=== PATIENT | female | born 1985 | race Two or more races ===

== ENCOUNTER 2016-08-05 11:20 | Emergency (ER) | payer MEDICAID, OTHER ==
[~2016-08-05] VITALS: Ht 157.5 cm; Wt 64.0 kg
[~2016-08-05 11:20] MED LIST: PRENATAL
[2016-08-05] MEDS ORDERED: KETOROLAC 60MG/2ML VIAL IM ONE (13:00)
[2016-08-05] MEDS ORDERED: ONDANSETRON 4MG ODT PO ONE (13:00)
[2016-08-05 13:24] VITALS: BP 124/85
== END 2016-08-05 13:37 | disposition home or self-care (01) ==
LOC: ER 13:13
DX: H81.10 Benign paroxysmal vertigo, unspecified ear (principal)
CPT/HCPCS: 81025; 96372; 99283; J1885; Q0162

== ENCOUNTER 2016-11-02 20:54 | Emergency (ER) | payer OTHER ==
[~2016-11-02] VITALS: Ht 157.5 cm; Wt 62.2 kg
[2016-11-02 21:20] VITALS: BP 118/75
== END 2016-11-02 23:06 | disposition left against medical advice (07) ==
LOC: ER 20:54
DX: Z53.21 Procedure and treatment not carried out due to patient leaving prior to being seen by health care provider (principal)

== ENCOUNTER 2017-04-01 22:10 | Emergency (ER) | payer MEDICAID, OTHER ==
[~2017-04-01] VITALS: Ht 157.5 cm; Wt 63.0 kg
[2017-04-02] MEDS ORDERED: SODIUM CHLORIDE 0.9% 1,000 ML IV ONE (03:03)
[2017-04-02 03:31] LABS: EOSINOPHILS % 5.1 % (0.0-5.0); HEMATOCRIT. 37.2 % (36.0-48.0); HEMOGLOBIN. 12.4 g/dL (12.0-16.0); LYMPHOCYTES % 30.8 % (20.0-50.0); MEAN CORPUSCULAR HEMOGLOBIN 29.2 pg (28.0-32.0); MEAN CORPUSCULAR VOLUME 87.6 fL (81.0-99.0); MEAN PLATELET VOLUME 7.8 fl (7.4-10.4); MONOCYTES % 4.3 % (2.0-8.0); NEUTROPHILS % 58.8 % (40.0-76.0); PLATELET 484 x1000/uL (130-400); RED BLOOD CELL COUNT 4.25 mill/uL (4.2-5.4); RED CELL DISTRIBUTION WIDTH 13.2 % (11.6-14.6)
[2017-04-02 03:43] VITALS: BP 108/64
[2017-04-02 03:51] LABS: B-HCG QUANTITATIVE 323 mIU/mL (<3)
[2017-04-02 04:48] LABS: CLARITY URINE CLEAR (CLEAR); COLOR URINE YELLOW (YELLOW); KETONES URINE NEGATIVE (NEGATIVE); LEUKOCYTE ESTERASE URINE NEGATIVE (NEGATIVE); NITRITE URINE NEGATIVE (NEGATIVE); OCCULT BLOOD URINE NEGATIVE (NEGATIVE); PH URINE 5.5 (4.5-8.0); PROTEIN URINE NEGATIVE (NEGATIVE); SPECIFIC GRAVITY URINE 1.014 (1.005-1.030); UROBILINOGEN URINE 0.2 E.U./dL (0.2-1.0)
[2017-04-02 04:49] LABS: CARBON DIOXIDE 25 mEq/L (21-32); CHLORIDE 107 mEq/L (98-107)
== END 2017-04-02 05:20 | disposition home or self-care (01) ==
LOC: ER 22:10
DX: O20.0 Threatened abortion (principal); O99.331 Smoking (tobacco) complicating pregnancy, first trimester; F17.200 Nicotine dependence, unspecified, uncomplicated; Z3A.01 Less than 8 weeks gestation of pregnancy
CPT/HCPCS: 36415; 76830; 76856; 80053; 81003; 81025; 84702; 85025; 86850; 86900; 99285; J7030

== ENCOUNTER 2017-04-03 19:56 | Emergency (ER) | payer MEDICAID ==
[~2017-04-03] VITALS: Ht 157.5 cm; Wt 64.0 kg
[2017-04-03 20:08] VITALS: BP 119/55
[2017-04-03 23:07] LABS: HCG SCREEN POSITIVE
== END 2017-04-04 00:10 | disposition home or self-care (01) ==
LOC: ER 20:18
DX: O03.4 Incomplete spontaneous abortion without complication (principal); Z3A.00 Weeks of gestation of pregnancy not specified
CPT/HCPCS: 36415; 84702; 84703; 99284

== ENCOUNTER 2017-09-07 19:10 | Emergency (ER) | payer MEDICAID ==
[~2017-09-07] VITALS: Ht 157.5 cm; Wt 71.0 kg
[2017-09-07 20:46] VITALS: BP 155/77
== END 2017-09-07 22:00 | disposition left against medical advice (07) ==
LOC: ER 19:10
DX: O26.891 Other specified pregnancy related conditions, first trimester (principal); R10.30 Lower abdominal pain, unspecified; R10.2 Pelvic and perineal pain; M54.5 Low back pain; O30.001 Twin pregnancy, unspecified number of placenta and unspecified number of amniotic sacs, first trimester; Z3A.14 14 weeks gestation of pregnancy; Z86.19 Personal history of other infectious and parasitic diseases; Z53.21 Procedure and treatment not carried out due to patient leaving prior to being seen by health care provider

== ENCOUNTER 2017-09-09 22:20 | Emergency (ER) | payer MEDICAID ==
[~2017-09-09] VITALS: Ht 157.5 cm; Wt 71.0 kg
[2017-09-10 00:10] LABS: CLARITY URINE CLEAR (CLEAR); COLOR URINE YELLOW (YELLOW); KETONES URINE NEGATIVE (NEGATIVE); LEUKOCYTE ESTERASE URINE NEGATIVE (NEGATIVE); NITRITE URINE NEGATIVE (NEGATIVE); OCCULT BLOOD URINE TRACE (NEGATIVE); PH URINE 5.5 (4.5-8.0); PROTEIN URINE NEGATIVE (NEGATIVE); SPECIFIC GRAVITY URINE 1.028 (1.005-1.030)
[2017-09-10 04:37] LABS: BASOPHILS % 0.4 % (0.0-2.0); EOSINOPHILS % 3.1 % (0.0-5.0); HEMATOCRIT. 33.2 % (36.0-48.0); HEMOGLOBIN. 11.1 g/dL (12.0-16.0); MEAN CORPUSCULAR HEMOGLOBIN 28.6 pg (28.0-32.0); MEAN CORPUSCULAR VOLUME 85.3 fL (81.0-99.0); MEAN PLATELET VOLUME 7.9 fl (7.4-10.4); MONOCYTES % 4.5 % (2.0-8.0); PLATELET 377 x1000/uL (130-400); RED BLOOD CELL COUNT 3.89 mill/uL (4.2-5.4); RED CELL DISTRIBUTION WIDTH 13.8 % (11.6-14.6)
[2017-09-10 04:38] LABS: CHLORIDE 107 mEq/L (98-107)
[2017-09-10 05:01] LABS: B-HCG QUANTITATIVE 30134 mIU/mL (<3)
[2017-09-10 05:15] VITALS: BP 111/76
== END 2017-09-10 05:54 | disposition home or self-care (01) ==
LOC: ER 22:20
DX: O26.892 Other specified pregnancy related conditions, second trimester (principal); R10.32 Left lower quadrant pain; M54.5 Low back pain; Z3A.14 14 weeks gestation of pregnancy; Z98.890 Other specified postprocedural states
CPT/HCPCS: 36415; 76805; 76810; 80053; 81003; 81025; 84702; 85025; 86850; 86900; 99285

== ENCOUNTER 2017-11-25 00:24 | Observation (INO) | payer MEDICAID ==
[~2017-11-25] VITALS: Ht 154.9 cm; Wt 73.5 kg
[2017-11-25] MEDS ORDERED: FERR325T23 MT (00:44)
[2017-11-25] MEDS ORDERED: TERBUTALINE SULFATE 1MG/ML VIAL SUBCUT PRN (01:15)
[2017-11-25] MEDS ORDERED: BETAMETHASONE ACET/BETAMET 30 MG/5 ML VIAL IM NR ×2 (01:15→05:45)
[2017-11-25] MEDS ORDERED: DEXT 5%/LACTATED RINGERS 1,000 ML IV SCH (01:15)
[2017-11-25 02:15] LABS: CLARITY URINE CLOUDY (CLEAR); COLOR URINE YELLOW (YELLOW); KETONES URINE NEGATIVE (NEGATIVE); LEUKOCYTE ESTERASE URINE 1+ (NEGATIVE); NITRITE URINE NEGATIVE (NEGATIVE); OCCULT BLOOD URINE NEGATIVE (NEGATIVE); PROTEIN URINE NEGATIVE (NEGATIVE); SPECIFIC GRAVITY URINE 1.007 (1.005-1.030)
[2017-11-25] MEDS ORDERED: CEFAZOLIN 2,000 MG in DEXT 5% WATER 100 ML IV NR (04:30)
[2017-11-25] MEDS ORDERED: ACETAMINOPHEN 325MG TABLET PO PRN (05:30)
== END 2017-11-25 06:50 | disposition home or self-care (01) ==
LOC: L&D 00:24
PROVIDERS: ADMIT Obstetrics & Gynecology; ATTEND Obstetrics & Gynecology
DX: O62.9 Abnormality of forces of labor, unspecified (principal); O26.892 Other specified pregnancy related conditions, second trimester; R35.0 Frequency of micturition; Z3A.25 25 weeks gestation of pregnancy
CPT/HCPCS: 76805; 76810; 81003; 96365; 96372; 99281; G0378; J0690; J0702; J3105; J7120; 96360; 96361; J7060

== ENCOUNTER 2017-11-25 18:39 | Observation (INO) | payer MEDICAID, OTHER ==
[~2017-11-25] VITALS: Ht 157.5 cm; Wt 73.5 kg
[~2017-11-25 18:39] MED LIST changes: +FERR325T23 MT
[2017-11-25] MEDS ORDERED: BETAMETHASONE ACET/BETAMET 30 MG/5 ML VIAL IM NR (20:30)
== END 2017-11-25 20:20 | disposition home or self-care (01) ==
LOC: L&D 18:39
PROVIDERS: ADMIT Obstetrics & Gynecology; ATTEND Obstetrics & Gynecology
DX: O62.9 Abnormality of forces of labor, unspecified (principal); Z3A.25 25 weeks gestation of pregnancy
CPT/HCPCS: 96372; G0378

== ENCOUNTER 2017-12-20 19:59 | Observation (INO) | payer SELFPAY ==
[~2017-12-20] VITALS: Ht 154.9 cm; Wt 71.7 kg
[2017-12-20] MEDS ORDERED: PREN1TAB78 MT (21:02)
[2017-12-20] MEDS ORDERED: TERBUTALINE SULFATE 1MG/ML VIAL SUBCUT PRN (21:30)
[2017-12-20] MEDS ORDERED: LACTATED RINGERS 1,000 ML IV SCH (21:30)
[2017-12-20 21:37] LABS: CLARITY URINE CLOUDY (CLEAR); COLOR URINE DARK YELLOW (YELLOW); KETONES URINE TRACE (NEGATIVE); LEUKOCYTE ESTERASE URINE NEGATIVE (NEGATIVE); NITRITE URINE NEGATIVE (NEGATIVE); OCCULT BLOOD URINE NEGATIVE (NEGATIVE); PROTEIN URINE TRACE (NEGATIVE); SPECIFIC GRAVITY URINE 1.034 (1.005-1.030)
== END 2017-12-20 23:15 | disposition home or self-care (01) ==
LOC: L&D 19:59
PROVIDERS: ADMIT Obstetrics & Gynecology; ATTEND Obstetrics & Gynecology
DX: O62.9 Abnormality of forces of labor, unspecified (principal); Z3A.28 28 weeks gestation of pregnancy
CPT/HCPCS: 81003; 96372; 99281; G0378; J3105; 96360

== ENCOUNTER 2018-01-26 00:10 | Inpatient (IN) | payer MEDICAID ==
[~2018-01-26] VITALS: Ht 157.5 cm; Wt 73.5 kg
[~2018-01-26 00:10] MED LIST changes: +PREN1TAB78 MT; -PRENATAL
[2018-01-26] MEDS ORDERED: LACTATED RINGERS 1,000 ML IV SCH ×2 (00:37→02:46)
[2018-01-26] MEDS: TERBUTALINE SULFATE 1MG/ML VIAL SUBCUT PRN ×3 (00:47→02:00)
[2018-01-26] MEDS ORDERED: DEXT 5%/LR + PITOCIN 20UNITS/L 1,000 ML IV SCH ×2 (02:46→08:31)
[2018-01-26] MEDS ORDERED: METHYLERGONOVINE MALEATE 0.2 MG/ML IM PRN (03:00)
[2018-01-26] MEDS ORDERED: CARBOPROST TROMETHAMINE 250 MCG/ML AMPUL IM PRN (03:00)
[2018-01-26] MEDS ORDERED: NALOXONE HCL 0.4 MG/ML 1ML VIAL IM PRN (03:00)
[2018-01-26 03:23] LABS: BASOPHILS % 0.6 % (0.0-2.0); HEMOGLOBIN. 9.7 g/dL (12.0-16.0); LYMPHOCYTES % 25.9 % (20.0-50.0); MEAN CORPUSCULAR HEMOGLOBIN 24.7 pg (28.0-32.0); MEAN CORPUSCULAR VOLUME 76.8 fL (81.0-99.0); MEAN PLATELET VOLUME 9.2 fl (7.4-10.4); MONOCYTES % 4.7 % (2.0-8.0); NEUTROPHILS % 67.8 % (40.0-76.0); PLATELET 368 x1000/uL (130-400); RED CELL DISTRIBUTION WIDTH 16.4 % (11.6-14.6)
[2018-01-26 03:29] LABS: INR 0.9; PARTIAL THROMBOPLASTIN TIME 26.3 sec (23.4-31.0); PROTHROMBIN TIME 9.5 sec (9.1-11.1)
[2018-01-26 03:45] LABS: CLARITY URINE CLEAR (CLEAR); COLOR URINE YELLOW (YELLOW); KETONES URINE NEGATIVE (NEGATIVE); LEUKOCYTE ESTERASE URINE NEGATIVE (NEGATIVE); NITRITE URINE NEGATIVE (NEGATIVE); OCCULT BLOOD URINE NEGATIVE (NEGATIVE); PH URINE 6.5 (4.5-8.0); PROTEIN URINE NEGATIVE (NEGATIVE); SPECIFIC GRAVITY URINE 1.004 (1.005-1.030); UROBILINOGEN URINE 0.2 E.U./dL (0.2-1.0)
[2018-01-26 03:55] LABS: *AMPHETAMINES SCREEN URINE NEGATIVE (NEGATIVE); *BARBITURATES SCREEN URINE NEGATIVE (NEGATIVE); *BENZODIAZEPINES SCREEN URINE NEGATIVE (NEGATIVE); *COCAINE SCREEN URINE NEGATIVE (NEGATIVE); CANNABINOID URINE SCREEN NEGATIVE (NEGATIVE); METHADONE URINE SCREEN NEGATIVE (NEGATIVE); OPIATES URINE SCREEN NEGATIVE (NEGATIVE); PHENCYCLIDINE URINE SCREEN NEGATIVE (NEGATIVE)
[2018-01-26 04:48] LABS: HEPATITIS B SURFACE ANTIGEN NEGATIVE
[2018-01-26] MEDS ORDERED: LIDOCAINE HCL 2%/EPINEPHRINE/PF 10 ML VIAL ONE (06:12)
[2018-01-26] MEDS ORDERED: CITRIC ACID/SODIUM CITRATE SOLN 30ML UDC PO NR (06:30)
[2018-01-26] MEDS ORDERED: MORPHINE SULFATE/PF 1MG/ML 10ML AMP ONE (07:07)
[2018-01-26] MEDS ORDERED: IBUPROFEN 800MG TABLET PO PRN (08:45)
[2018-01-26] MEDS ORDERED: KETOROLAC 30MG/ML VIAL IV PRN (08:45)
[2018-01-26] MEDS ORDERED: IBUPROFEN 400MG TABLET PO PRN (08:45)
[2018-01-26] MEDS ORDERED: MEPERIDINE HCL/PF 25MG/ML CPJ IV PRN (08:45)
[2018-01-26] MEDS ORDERED: RHO(D) IMMUNE GLOBULIN 300 MCG/SYR IM PRN (08:45)
[2018-01-26] MEDS ORDERED: ACETAMINOPHEN WITH CODEINE 300/30MG TABLET PO PRN (08:45)
[2018-01-26] MEDS ORDERED: GLYCOPYRROLATE 0.2 MG/ML 2ML VIAL IV PRN (08:45)
[2018-01-26] MEDS ORDERED: HYDROMORPHONE HCL/PF 2MG/ML CPJ IM PRN (08:45)
[2018-01-26] MEDS ORDERED: ONDANSETRON HCL 4MG/2ML INJ IV PRN (08:45)
[2018-01-26] MEDS ORDERED: OXYCODONE HCL/ACETAMINOPHEN 5/325MG TABLET PO PRN (09:00)
[2018-01-26 12:05] VITALS: BP 102/58
[2018-01-26 12:30] VITALS: BP 105/59
[2018-01-26 13:30] VITALS: BP 105/60
[2018-01-26 14:30] VITALS: BP 117/63
[2018-01-26 20:00] VITALS: BP 121/76
[2018-01-26] MEDS: BISACODYL 10MG SUPP PR PRN (23:40)
[2018-01-27] VITALS: BP 119/71
[2018-01-27 04:30] VITALS: BP 101/62
[2018-01-27 07:51] LABS: BASOPHILS % 0.3 % (0.0-2.0); HEMATOCRIT. 27.7 % (36.0-48.0); LYMPHOCYTES % 20.8 % (20.0-50.0); MEAN CORPUSCULAR HEMOGLOBIN 24.8 pg (28.0-32.0); MEAN CORPUSCULAR VOLUME 76.7 fL (81.0-99.0); MEAN PLATELET VOLUME 8.5 fl (7.4-10.4); MONOCYTES % 4.2 % (2.0-8.0); NEUTROPHILS % 73.7 % (40.0-76.0); PLATELET 227 x1000/uL (130-400); RED BLOOD CELL COUNT 3.61 mill/uL (4.2-5.4); RED CELL DISTRIBUTION WIDTH 16.9 % (11.6-14.6)
[2018-01-27 08:00] VITALS: BP 112/74
[2018-01-27] MEDS: BISACODYL 10MG SUPP PR PRN (10:34)
[2018-01-27 12:00] VITALS: BP 109/69
[2018-01-27 16:00] VITALS: BP 77/63
[2018-01-27 22:00] VITALS: BP 125/82
[2018-01-28 05:08] VITALS: BP 121/79
[2018-01-28 07:30] VITALS: BP 116/77
[2018-01-28] MEDS: BISACODYL 10MG SUPP PR PRN (08:44)
[2018-01-28] MEDS ORDERED: TETANUS, DIPHTHERIA, PERTUSSIS VAC/PF 0.5ML (>7YR OLD) IM ONE (10:00)
[2018-01-29] MEDS ORDERED: INFLUENZA VIRUS VACCINE(AFLURIA) 0.5ML SYR IM ONE (09:00)
== END 2018-01-28 11:20 | disposition home or self-care (01) | DRG 540 ==
LOC: OBSVTOIN 00:10 → L&D 00:10 → 7EST PP/OB 14:57
PROVIDERS: ADMIT Obstetrics & Gynecology; ATTEND Obstetrics & Gynecology
PROC: 0UB70ZZ Excision of Bilateral Fallopian Tubes, Open Approach (ICD-10-PCS; 2018-01-26)
PROC: 10D00Z1 Extraction of Products of Conception, Low, Open Approach (ICD-10-PCS; principal; 2018-01-26 08:25)
DX: O30.003 Twin pregnancy, unspecified number of placenta and unspecified number of amniotic sacs, third trimester (principal); O60.14X1 Preterm labor third trimester with preterm delivery third trimester, fetus 1; O60.14X2 Preterm labor third trimester with preterm delivery third trimester, fetus 2; Z37.2 Twins, both liveborn; O32.8XX1 Maternal care for other malpresentation of fetus, fetus 1; O32.8XX2 Maternal care for other malpresentation of fetus, fetus 2; O90.81 Anemia of the puerperium; D64.9 Anemia, unspecified; O34.211 Maternal care for low transverse scar from previous cesarean delivery; Z3A.34 34 weeks gestation of pregnancy; Z30.2 Encounter for sterilization
CPT/HCPCS: 36415; 76805; 76810; 80305; 86592; 86703; 86762; 86850; 86900; 87340; 88302; 88307; 90686; 90715; 99281; J1885; J2274; J2590; J3105; J3490; J7120; A4315

== ENCOUNTER 2018-05-12 18:18 | Emergency (ER) | payer MEDICAID ==
[~2018-05-12] VITALS: Ht 157.5 cm; Wt 64.0 kg
[2018-05-12 20:25] VITALS: BP 131/86
== END 2018-05-12 21:12 | disposition home or self-care (01) ==
LOC: ER 18:18
DX: L02.212 Cutaneous abscess of back [any part, except buttock and flank] (principal); F17.210 Nicotine dependence, cigarettes, uncomplicated; Z98.51 Tubal ligation status
CPT/HCPCS: 99283

== ENCOUNTER 2021-02-25 09:12 | Emergency (ER) | payer MEDICAID, OTHER ==
[~2021-02-25] VITALS: Ht 160 cm; Wt 66.0 kg
[2021-02-25 09:17] VITALS: BP 143/83
[2021-02-25] MEDS ORDERED: KETOROLAC 60MG/2ML VIAL IM ONE (10:15)
[2021-02-25] MEDS ORDERED: IBUP-2029 MT ×2 (12:02→12:24)
[2021-02-25] MEDS ORDERED: PREN1TAB78 MT (12:05)
== END 2021-02-25 12:32 | disposition home or self-care (01) ==
LOC: ER 09:12
DX: S93.402A Sprain of unspecified ligament of left ankle, initial encounter (principal); F17.210 Nicotine dependence, cigarettes, uncomplicated; X50.1XXA Overexertion from prolonged static or awkward postures, initial encounter; Y93.89 Activity, other specified; Y92.018 Other place in single-family (private) house as the place of occurrence of the external cause
CPT/HCPCS: 73610; 73630; 96372; 99284; J1885

== ENCOUNTER 2021-04-03 16:26 | Emergency (ER) | payer OTHER ==
[~2021-04-03] VITALS: Ht 160 cm; Wt 69.0 kg
[~2021-04-03 16:26] MED LIST changes: +IBUP-2029 MT; -PREN1TAB78 MT
[2021-04-03] MEDS ORDERED: VISCOUS LIDOCAINE 2% 15 ML UDC MM STA (17:21)
[2021-04-03] MEDS ORDERED: DEXAMETHASONE 10 MG/ML VIAL PO ONE (17:30)
[2021-04-03] MEDS ORDERED: MAGNESIUM/ALUMINUM HYDROXIDE/SIMETHICONE 30ML UDC PO ONE (17:30)
[2021-04-03] MEDS ORDERED: FAMOTIDINE 20MG TABLET PO ONE (17:30)
[2021-04-03] MEDS ORDERED: PENI500T MT (17:43)
[2021-04-03] MEDS ORDERED: TOPUD MT (17:43)
[2021-04-03] MEDS ORDERED: FAMO40TA7 MT (17:43)
[2021-04-03 18:12] VITALS: BP 133/65
== END 2021-04-03 18:15 | disposition home or self-care (01) ==
LOC: ER 16:26
DX: J02.9 Acute pharyngitis, unspecified (principal); Z20.822 Contact with and (suspected) exposure to COVID-19; Z98.51 Tubal ligation status; Z87.891 Personal history of nicotine dependence
CPT/HCPCS: 87426; 99284; J1100

== ENCOUNTER 2021-04-06 01:13 | Emergency (ER) | payer OTHER ==
[~2021-04-06] VITALS: Ht 157.5 cm; Wt 145.0 kg
[~2021-04-06 01:13] MED LIST changes: +FAMO40TA7 MT; +PENI500T MT; +TOPUD MT
[2021-04-06 01:37] VITALS: BP 139/49
[2021-04-06] MEDS ORDERED: ONDA4TAB5 MT (02:23)
[2021-04-06] MEDS ORDERED: ONDANSETRON 4MG ODT PO ONE (02:30)
== END 2021-04-06 02:44 | disposition home or self-care (01) ==
LOC: ER 01:13
DX: R11.2 Nausea with vomiting, unspecified (principal); Z20.822 Contact with and (suspected) exposure to COVID-19; Z98.51 Tubal ligation status
CPT/HCPCS: 87426; 99283; Q0162

== ENCOUNTER 2021-04-12 18:10 | Emergency (ER) | payer MEDICAID, OTHER ==
[~2021-04-12] VITALS: Ht 157.5 cm; Wt 75.0 kg
[~2021-04-12 18:10] MED LIST changes: +ONDA4TAB5 MT
[2021-04-12 18:16] VITALS: BP 153/94
[2021-04-12 19:33] LABS: BASOPHILS % 0.7 % (0.0-2.0); EOSINOPHILS % 3.1 % (0.0-5.0); HEMATOCRIT. 36.7 % (36.0-48.0); HEMOGLOBIN. 11.7 g/dL (12.0-16.0); LYMPHOCYTES % 10.2 % (20.0-50.0); MEAN CORPUSCULAR HEMOGLOBIN 26.4 pg (28.0-32.0); MEAN PLATELET VOLUME 7.9 fl (7.4-10.4); MONOCYTES % 6.8 % (2.0-8.0); NEUTROPHILS % 79.2 % (40.0-76.0); PLATELET 400 x1000/uL (130-400); RED BLOOD CELL COUNT 4.43 mill/uL (4.2-5.4); RED CELL DISTRIBUTION WIDTH 14.6 % (11.6-14.6)
[2021-04-12 19:39] LABS: CHLORIDE 109 mEq/L (98-107)
[2021-04-12 20:04] LABS: CLARITY URINE CLEAR (CLEAR); COLOR URINE YELLOW (YELLOW); KETONES URINE NEGATIVE (NEGATIVE); LEUKOCYTE ESTERASE URINE 2+ (NEGATIVE); NITRITE URINE NEGATIVE (NEGATIVE); OCCULT BLOOD URINE 2+ (NEGATIVE); PH URINE 5.5 (4.5-8.0); PROTEIN URINE NEGATIVE (NEGATIVE); UROBILINOGEN URINE 0.2 E.U./dL (0.2-1.0)
[2021-04-12] MEDS ORDERED: NITR-87 MT (20:27)
== END 2021-04-12 20:52 | disposition home or self-care (01) ==
LOC: ER 18:10
DX: U07.1 COVID-19 (principal); N39.0 Urinary tract infection, site not specified; Z98.890 Other specified postprocedural states
CPT/HCPCS: 36415; 80053; 81003; 81025; 85025; 87426; 99283

== ENCOUNTER 2021-04-28 16:14 | Emergency (ER) | payer MEDICAID ==
[~2021-04-28] VITALS: Ht 157.5 cm; Wt 64.0 kg
[~2021-04-28 16:14] MED LIST changes: +NITR-87 MT
[2021-04-28 17:11] LABS: CLARITY URINE TURBID (CLEAR); COLOR URINE YELLOW (YELLOW); KETONES URINE TRACE (NEGATIVE); LEUKOCYTE ESTERASE URINE 3+ (NEGATIVE); NITRITE URINE NEGATIVE (NEGATIVE); OCCULT BLOOD URINE 2+ (NEGATIVE); PH URINE 5.5 (4.5-8.0); PROTEIN URINE 1+ (NEGATIVE); SPECIFIC GRAVITY URINE 1.024 (1.005-1.030)
[2021-04-28] MEDS ORDERED: METR-167 MT (17:33)
[2021-04-28] MEDS ORDERED: CEPH500C2 MT (17:33)
[2021-04-28 17:49] VITALS: BP 142/85
[2021-05-01 15:09] LABS: NEISSERIA GONORRHOEAE NAA Negative (Negative)
== END 2021-04-28 17:44 | disposition home or self-care (01) ==
LOC: ER 16:14
DX: A59.9 Trichomoniasis, unspecified (principal); N39.0 Urinary tract infection, site not specified; A64 Unspecified sexually transmitted disease; Z98.51 Tubal ligation status; Z90.49 Acquired absence of other specified parts of digestive tract
CPT/HCPCS: 81003; 87210; 87491; 87591; 99283

== ENCOUNTER 2021-05-03 15:11 | Emergency (ER) | payer MEDICAID ==
[~2021-05-03] VITALS: Ht 157.5 cm; Wt 66.0 kg
[~2021-05-03 15:11] MED LIST changes: +CEPH500C2 MT; +METR-167 MT
[2021-05-03 15:30] VITALS: BP 119/89
[2021-05-03] MEDS ORDERED: MAGNESIUM/ALUMINUM HYDROXIDE/SIMETHICONE 30ML UDC PO STA (21:49)
[2021-05-03] MEDS ORDERED: ONDANSETRON HCL 4MG/2ML INJ IV STA (21:49)
[2021-05-03] MEDS ORDERED: PANTOPRAZOLE SODIUM 40 MG/VIAL IV STA (21:49)
[2021-05-03] MEDS ORDERED: SODIUM CHLORIDE 0.9% 1,000 ML IV ONE (22:00)
[2021-05-03] MEDS ORDERED: VISCOUS LIDOCAINE 2% 15 ML UDC MM ONE (22:15)
[2021-05-03] MEDS ORDERED: ACETAMINOPHEN 325MG TABLET PO ONE (22:15)
[2021-05-03] MEDS ORDERED: POLYETHYLENE GLYCOL 3350 (17GM) 1 DOSE PACK PO ONE (22:15)
[2021-05-03] MEDS ORDERED: LORAZEPAM 0.5MG TABLET PO ONE (22:15)
[2021-05-03 22:19] LABS: CLARITY URINE CLOUDY (CLEAR); COLOR URINE RED (YELLOW); KETONES URINE NEGATIVE (NEGATIVE); LEUKOCYTE ESTERASE URINE 2+ (NEGATIVE); NITRITE URINE NEGATIVE (NEGATIVE); OCCULT BLOOD URINE 3+ (NEGATIVE); PROTEIN URINE 3+ (NEGATIVE); SPECIFIC GRAVITY URINE 1.006 (1.005-1.030); UROBILINOGEN URINE 0.2 E.U./dL (0.2-1.0)
[2021-05-03 22:39] LABS: *COCAINE SCREEN URINE NEGATIVE (NEGATIVE); CANNABINOID URINE SCREEN NEGATIVE (NEGATIVE); METHADONE URINE SCREEN NEGATIVE (NEGATIVE); OPIATES URINE SCREEN NEGATIVE (NEGATIVE); PHENCYCLIDINE URINE SCREEN NEGATIVE (NEGATIVE)
[2021-05-03 22:40] LABS: *AMPHETAMINES SCREEN URINE NEGATIVE (NEGATIVE); *BARBITURATES SCREEN URINE NEGATIVE (NEGATIVE); *BENZODIAZEPINES SCREEN URINE NEGATIVE (NEGATIVE)
[2021-05-03 22:43] LABS: BASOPHILS % 0.7 % (0.0-2.0); EOSINOPHILS % 1.3 % (0.0-5.0); HEMATOCRIT. 34.3 % (36.0-48.0); HEMOGLOBIN. 11.2 g/dL (12.0-16.0); LYMPHOCYTES % 24.2 % (20.0-50.0); MEAN CORPUSCULAR HEMOGLOBIN 26.4 pg (28.0-32.0); MEAN CORPUSCULAR VOLUME 80.7 fL (81.0-99.0); MEAN PLATELET VOLUME 7.7 fl (7.4-10.4); MONOCYTES % 5.4 % (2.0-8.0); NEUTROPHILS % 68.4 % (40.0-76.0); PLATELET 523 x1000/uL (130-400); RED BLOOD CELL COUNT 4.25 mill/uL (4.2-5.4)
[2021-05-03 22:48] LABS: CHLORIDE 108 mEq/L (98-107)
[2021-05-03 22:52] LABS: ETHANOL BLOOD < 10 mg/dL
[2021-05-03 22:55] LABS: HCG SCREEN NEGATIVE
[2021-05-04] MEDS ORDERED: CLIN300C12 MT (00:23)
[2021-05-04] MEDS ORDERED: CLINDAMYCIN HCL 150MG CAPSULE PO ONE (00:30)
[2021-05-04] MEDS ORDERED: DICY10CA88 MT (00:44)
[2021-05-04] MEDS ORDERED: CEPH500C2 MT (00:44)
[2021-05-04] MEDS ORDERED: PROT40 MT (00:44)
[2021-05-04] MEDS ORDERED: ONDA4TAB5 MT (00:44)
[2021-05-04] MEDS ORDERED: MAG-55 MT (00:44)
== END 2021-05-04 01:09 | disposition home or self-care (01) ==
LOC: ER 15:11
DX: N39.0 Urinary tract infection, site not specified (principal); K59.00 Constipation, unspecified; R10.84 Generalized abdominal pain; D64.9 Anemia, unspecified; F41.9 Anxiety disorder, unspecified; Z98.51 Tubal ligation status
CPT/HCPCS: 36415; 71045; 80053; 80305; 80320; 81003; 81025; 83690; 84703; 85025; 87086; 96361; 96374; 96375; 99284; C9113; J2405; J7030; G0480

== ENCOUNTER 2021-05-04 18:22 | Emergency (ER) | payer MEDICAID ==
[~2021-05-04] VITALS: Ht 157.5 cm; Wt 68.0 kg
[~2021-05-04 18:22] MED LIST changes: +CLIN300C12 MT; +DICY10CA88 MT; +MAG-55 MT; +PROT40 MT
[2021-05-04 19:04] VITALS: BP 146/63
== END 2021-05-04 19:11 | disposition home or self-care (01) ==
LOC: ER 18:22
DX: N39.0 Urinary tract infection, site not specified (principal); Z98.51 Tubal ligation status
CPT/HCPCS: 99281

== ENCOUNTER 2021-07-15 10:38 | Emergency (ER) | payer MEDICAID, OTHER ==
[~2021-07-15] VITALS: Ht 154.9 cm; Wt 64.0 kg
[~2021-07-15 10:38] MED LIST changes: -CLIN300C12 MT
[2021-07-15 12:35] VITALS: BP 111/79
[2021-07-15] MEDS ORDERED: AMOX500T2 MT (14:20)
[2021-07-15] MEDS ORDERED: IBUP-2030 MT (14:20)
== END 2021-07-15 14:42 | disposition home or self-care (01) ==
LOC: ER 11:50
DX: J02.0 Streptococcal pharyngitis (principal); Z98.890 Other specified postprocedural states; Z98.51 Tubal ligation status
CPT/HCPCS: 99283

== ENCOUNTER 2021-09-22 11:06 | Emergency (ER) | payer MEDICAID, OTHER ==
[~2021-09-22] VITALS: Ht 157.5 cm; Wt 68.0 kg
[~2021-09-22 11:06] MED LIST changes: +AMOX500T2 MT; +IBUP-2030 MT
[2021-09-22 13:12] LABS: BASOPHILS % 0.6 % (0.0-2.0); EOSINOPHILS % 2.8 % (0.0-5.0); HEMATOCRIT. 34.5 % (36.0-48.0); HEMOGLOBIN. 10.8 g/dL (12.0-16.0); MEAN CORPUSCULAR HEMOGLOBIN 23.9 pg (28.0-32.0); MEAN CORPUSCULAR VOLUME 76.1 fL (81.0-99.0); MEAN PLATELET VOLUME 7.1 fl (7.4-10.4); MONOCYTES % 4.6 % (2.0-8.0); PLATELET 543 x1000/uL (130-400); RED BLOOD CELL COUNT 4.53 mill/uL (4.2-5.4)
[2021-09-22 13:33] LABS: CHLORIDE 104 mEq/L (98-107)
[2021-09-22 13:57] LABS: HCG SCREEN NEGATIVE
[2021-09-22 15:19] LABS: CLARITY URINE CLEAR (CLEAR); COLOR URINE YELLOW (YELLOW); KETONES URINE NEGATIVE (NEGATIVE); LEUKOCYTE ESTERASE URINE TRACE (NEGATIVE); NITRITE URINE NEGATIVE (NEGATIVE); OCCULT BLOOD URINE 2+ (NEGATIVE); PH URINE 5.5 (4.5-8.0); PROTEIN URINE NEGATIVE (NEGATIVE); SPECIFIC GRAVITY URINE 1.007 (1.005-1.030); UROBILINOGEN URINE 0.2 E.U./dL (0.2-1.0)
[2021-09-22] MEDS ORDERED: IOHEXOL-300 100 ML BOTTLE ONE (16:49)
[2021-09-22] MEDS ORDERED: KETOROLAC 15MG/ML VIAL IV NR (19:15)
[2021-09-22] MEDS ORDERED: NAPR-681 MT (20:05)
[2021-09-22 20:17] VITALS: BP 138/87
== END 2021-09-22 20:18 | disposition home or self-care (01) ==
LOC: ER 13:17
DX: R10.31 Right lower quadrant pain (principal); R11.0 Nausea; Z98.890 Other specified postprocedural states; Z98.51 Tubal ligation status; Z79.899 Other long term (current) drug therapy
CPT/HCPCS: 36415; 74177; 80053; 81003; 81025; 83690; 84703; 85025; 96374; 99285; J1885; Q9967

== ENCOUNTER 2021-12-17 17:34 | Emergency (ER) | payer OTHER ==
[~2021-12-17] VITALS: Ht 157.5 cm; Wt 71.6 kg
[~2021-12-17 17:34] MED LIST changes: +NAPR-681 MT
[2021-12-17 17:55] VITALS: BP 156/95
[2021-12-18] MEDS ORDERED: DIF15 MT (01:50)
[2021-12-18] MEDS ORDERED: FLUCONAZOLE 100MG TABLET PO ONE (02:00)
[2021-12-18] MEDS ORDERED: FLUCONAZOLE 150MG TABLET PO NR (02:15)
[2021-12-18 02:29] LABS: CLARITY URINE CLEAR (CLEAR); COLOR URINE YELLOW (YELLOW); KETONES URINE NEGATIVE (NEGATIVE); LEUKOCYTE ESTERASE URINE NEGATIVE (NEGATIVE); NITRITE URINE NEGATIVE (NEGATIVE); OCCULT BLOOD URINE NEGATIVE (NEGATIVE); PROTEIN URINE NEGATIVE (NEGATIVE); UROBILINOGEN URINE 0.2 E.U./dL (0.2-1.0)
== END 2021-12-18 03:08 | disposition home or self-care (01) ==
LOC: ER 17:34
DX: B37.31 Acute candidiasis of vulva and vagina (principal); Z20.2 Contact with and (suspected) exposure to infections with a predominantly sexual mode of transmission; Z98.890 Other specified postprocedural states; Z98.51 Tubal ligation status
CPT/HCPCS: 81003; 99283